=== PATIENT | male | born 1950 | race Caucasian/White ===

== ENCOUNTER 2023-04-17 08:52 | Outpatient (RCR) | payer MEDICARE, OTHER, SELFPAY ==
--- NOTE | ~2023-04-17 | XR_ITS ---
EXAMINATION: XR FOOT, LEFT CLINICAL INFORMATION: Nonhealing ulcer left dorsal foot. COMPARISON: None available. TECHNIQUE: AP, lateral, and oblique views of the left foot. FINDINGS: Small plantar calcaneal spur. Small dorsal calcaneal spur. Faint soft tissue calcifications, possibly vascular. Irregular densities along medial aspect of the 1st metatarsophalangeal joint may be related to overlying dressings. Mild degenerative changes in the 1st metatarsophalangeal joint. Spurring along the base of the 5th metatarsal. Small ossicle lateral to the base of the 5th metatarsal could be related to chronic/degenerative process versus an avulsion fracture of indeterminate age. XR/XR foot LT min 3V IMPRESSION: Irregular densities along medial aspect of the 1st metatarsophalangeal joint may be related to overlying dressings. Mild degenerative changes in the 1st metatarsophalangeal joint. Spurring along the base of the 5th metatarsal. Small ossicle lateral to the base of the 5th metatarsal could be related to chronic/degenerative process versus an avulsion fracture of indeterminate age. MRI should be considered for further evaluation if there is concern for osteomyelitis or fracture.
[2023-04-17 11:27] LABS: Basophils Absolute Auto 0.2 X10*3/uL (0.0-0.2); Basophils Percent Auto 1.2 % (0-2); Eosinophils Absolute Auto 0.5 X10*3/uL (0.0-0.4); Hemoglobin 13.1 g/dl (14.0-18.0); Imm Gran Abs Auto 0.75 X10*3/uL (0.00-0.03); Imm Gran Pct Auto 4.2 % (0.0-0.4); Lymphocytes Absolute Auto 5.5 X10*3/uL (1.2-4.9); MANUAL DIFF FLAG SCAN; Mean Corpuscular Hemoglobin 27.2 pg (27.0-33.0); Mean Corpuscular Volume 85.2 fL (80.0-98.0); Mean Platelet Volume 10.7 fL (9.4-12.4); Monocytes Absolute Auto 1.4 X10*3/uL (0.1-1.2); Monocytes Percent Auto 7.6 % (2-11); Neutrophils Absolute Auto 9.5 x10*3/uL (2.0-8.3); Platelet Count 199 X10*3/uL (160-400); Red Blood Count 4.81 X10*6/uL (4.60-5.80); Red Cell Distribution Width 15.2 % (11.0-16.0); SCAN SMEAR FLAG 1; White Blood Count 17.9 X10*3/uL (4.8-10.8)
[2023-04-17 11:43] LABS: Estimated Average Glucose 163 mg/dL; Hemoglobin A1c % 7.3 % (<6.0)
[2023-04-17 11:52] LABS: SLIDE REVIEW VERIFIED
[2023-04-17 12:14] LABS: Erythrocyte Sedimentation Rate 13 MM/HR (0-15)
[2023-04-17 12:54] LABS: Anion Gap 12 (12-20); Blood Urea Nitrogen 37 mg/dL (9-16); C Reactive Protein 0.23 mg/dL (< or = 0.50); Calcium 9.6 mg/dL (8.4-10.2); Carbon Dioxide 27 mmol/L (22-29); Chloride 109 mmol/L (96-108); Estimated Glomerular Filt Rate 36; Glucose Random 95 mg/dL (60-115); Potassium 4.6 mmol/L (3.3-5.1); Sodium 143 mmol/L (135-145)
== END 2023-07-11 17:00 | disposition home or self-care (01) ==
LOC: HO.WCC 08:52
PROVIDERS: PCP Internal Medicine; Referring Provider Physician Assistant; Visit Provider Physician Assistant
DX: Z09 Encounter for follow-up examination after completed treatment for conditions other than malignant neoplasm (principal); E11.51 Type 2 diabetes mellitus with diabetic peripheral angiopathy without gangrene; L84 Corns and callosities; E11.40 Type 2 diabetes mellitus with diabetic neuropathy, unspecified; I10 Essential (primary) hypertension; Z87.891 Personal history of nicotine dependence; Z86.31 Personal history of diabetic foot ulcer
CPT/HCPCS: 11042; 11043; 11044; 15275; 36415; 73630; 80048; 83036; 84134; 85025; 85652; 86140; 87070; 87073; 87205; 99212; 99213; Q4187

== ENCOUNTER 2023-12-11 10:36 | Outpatient (RCR) | payer MEDICARE, OTHER, SELFPAY | END 2024-02-15 14:58 | disposition home or self-care (01) | LOC: HO.WCC 10:36 | PROVIDERS: PCP Internal Medicine; Visit Provider Physician Assistant | DX: E11.622 Type 2 diabetes mellitus with other skin ulcer (principal); L97.812 Non-pressure chronic ulcer of other part of right lower leg with fat layer exposed; E11.22 Type 2 diabetes mellitus with diabetic chronic kidney disease; I12.9 Hypertensive chronic kidney disease with stage 1 through stage 4 chronic kidney disease, or unspecified chronic kidney disease; E11.40 Type 2 diabetes mellitus with diabetic neuropathy, unspecified; E11.51 Type 2 diabetes mellitus with diabetic peripheral angiopathy without gangrene; N18.30 Chronic kidney disease, stage 3 unspecified; L40.9 Psoriasis, unspecified; Z79.4 Long term (current) use of insulin; Z79.01 Long term (current) use of anticoagulants; Z87.891 Personal history of nicotine dependence; Z86.718 Personal history of other venous thrombosis and embolism | CPT/HCPCS: 11042; 99212 ==

== ENCOUNTER 2024-02-20 08:46 | Outpatient (RCR) | payer MEDICARE, OTHER, SELFPAY | END 2024-03-22 10:26 | disposition home or self-care (01) | LOC: HO.WCC 08:46 | PROVIDERS: PCP Internal Medicine; Visit Provider Physician Assistant | DX: E11.621 Type 2 diabetes mellitus with foot ulcer (principal); E11.51 Type 2 diabetes mellitus with diabetic peripheral angiopathy without gangrene; L97.522 Non-pressure chronic ulcer of other part of left foot with fat layer exposed; E11.40 Type 2 diabetes mellitus with diabetic neuropathy, unspecified; E11.22 Type 2 diabetes mellitus with diabetic chronic kidney disease; I12.9 Hypertensive chronic kidney disease with stage 1 through stage 4 chronic kidney disease, or unspecified chronic kidney disease; N18.30 Chronic kidney disease, stage 3 unspecified; Z87.891 Personal history of nicotine dependence; Z79.899 Other long term (current) drug therapy | CPT/HCPCS: 11042; 99212 ==

== ENCOUNTER 2024-11-01 13:00 | Outpatient (RCR) | payer MEDICARE, OTHER, SELFPAY | END 2024-12-18 14:15 | disposition home or self-care (01) | LOC: HO.WCC 13:00 | PROVIDERS: PCP Internal Medicine; Visit Provider Surgery | DX: E11.621 Type 2 diabetes mellitus with foot ulcer (principal); L97.512 Non-pressure chronic ulcer of other part of right foot with fat layer exposed; Z79.01 Long term (current) use of anticoagulants; Z79.84 Long term (current) use of oral hypoglycemic drugs; Z79.899 Other long term (current) drug therapy | CPT/HCPCS: 11042; 97597; 99212 ==